=== PATIENT | male | born 1985 | race Caucasian/White ===

== ENCOUNTER 2020-08-11 19:28 | Emergency (ER) | payer OTHER, SELFPAY ==
[2020-08-11 19:30] VITALS: BP 147/91; PULSE 90; RESP 20; TEMP 36.5; O2SAT 97; BMI 29.8
--- NOTE | 2020-08-11 19:51 | HMH.EDUTC ---
[facility] [place] Disposition Clinical Impression: Bronchitis, Viral syndrome Disposition: Home, Self-Care Condition on Discharge: Good Instructions: DI for Acute Bronchitis, Preventing the Spread of Coronavirus Discharge Instructions Additional Instructions: Drink plenty of fluids. Take tylenol for pain or fever. Return if you begin to have difficulty breathing. Follow up with your regular doctor. GO TO THE ER FOR ANY WORSENING SYMPTOMS Prescriptions: Ondansetron [Zofran 4mg ODT] 4 mg PO Q8HP PRN #12 tab.rapdis PRN Reason: Nausea Transmission Status: Received by [facility] #[id number] Benzonatate [Tessalon Perle 100mg Cap] 100 mg PO TIDP PRN #30 cap PRN Reason: Cough Transmission Status: Received by [facility] #[id number] Azithromycin [Z-Chano 250mg Tab*] 250 mg PO UD DOSE PK #6 tab Transmission Status: Received by [facility] #[id number] Referrals: PCP,No [Primary Care Provider] - Forms: Work/School Release Time of Disposition: 20:09 Medical Decision Making - Medical Records Medical records reviewed: No: I reviewed the patient's medical records. - Dmitri Inquiry Pt receiving controlled substance: No Vital Signs: 08/11/20 19:30 08/11/20 19:57 Temperature 97.7 F 97.7 F Temperature Source Oral Pulse Rate 90 Pulse Rate [Right Brachial] 90 Respiratory Rate 20 20 Blood Pressure 147/91 H Blood Pressure [Right Arm] 147/91 H Blood Pressure Mean [Right Arm] 109 Blood Pressure Source [Right Arm] Automatic Cuff Blood Pressure Position [Right Arm] Sitting 02 Sat by Pulse Oximetry 97 Oxygen Delivery Method Room Air [facility] [place] HPI - General Stated complaint: Sinus congestion;nausea Time Seen by Provider: 08/11/20 19:52 - History of Present Illness Provider Complaint: He states that he has had sinus congestion, body aches, cough, for the past 2 days. He denies any known exposure to covid-19. - Related Data Home Medications Medication Instructions Recorded Confirmed Omeprazole [Omeprazole 40mg 40 mg PO DAILY 02/26/19 08/11/20 Capsule] Previous Rx's Medication Instructions Recorded Azithromycin [Z-Chano 250mg Tab*] 250 mg PO UD DOSE PK #6 tab 08/11/20 Benzonatate [Tessalon Perle 100mg 100 mg PO TIDP PRN #30 cap 08/11/20 Cap] Ondansetron [Zofran 4mg ODT] 4 mg PO Q8HP PRN #12 tab.rapdis 08/11/20 Allergies Allergy/AdvReac Type Severity Reaction Status Date / Time amoxicillin Allergy Verified 07/12/19 21:34 cephalexin Allergy Verified 02/26/19 07:20 Penicillins Allergy Verified 02/26/19 07:20 sulfamethoxazole Allergy Verified 02/26/19 07:20 [From Bactrim] trimethoprim [From Bactrim] Allergy Verified 02/26/19 07:20 [facility] History - Hepatitis A Screen Attestation statement:: This patient has been screened for Hepatitis A risk factors. I have reviewed the patient's past medical history: Yes Medical History: Denies:: Cancer, Diabetes Mellitus Type 1, Diabetes Mellitus Type 2, MRSA Amputation: No Fractures: No - Social History Smoking Status: Never smoker Alcohol Intake: never Occupational Status: employed ROS Obtained: Yes All systems reviewed & no additional complaints - Constitutional Constitutional: Reports system reviewed and no additional complaints, except as docu - Eyes Eyes: Reports system reviewed and no additional complaints, except as docu - ENT Ears, Nose, Mouth, and Throat: Reports system reviewed and no additional complaints, except as docu - Cardiovascular Cardiovascular: Reports system reviewed and no additional complaints, except as docu - Respiratory Respiratory: Reports system reviewed and no additional complaints, except as docu - Gastrointestinal Gastrointestingal: Reports: system reviewed and no additional complaints, except as docu Physical Exam - General General appearance: alert, in no apparent distress - Head Head exam: atraumatic, normocephalic, normal inspection - Eye
[2020-08-11 19:57] VITALS: BP 147/91; PULSE 90; RESP 20; TEMP 36.5; O2SAT 97
--- NOTE | 2020-08-12 09:49 | PC.NURSE ---
patient notified of positive covid results
== END 2020-08-11 20:13 | disposition home or self-care (01) ==
PROVIDERS: Emergency Provider Nurse Practitioner Family
DX: U07.1 COVID-19 (principal); J20.9 Acute bronchitis, unspecified; Z88.0 Allergy status to penicillin; Z88.2 Allergy status to sulfonamides
CPT/HCPCS: 99202; G0463; U0003

== ENCOUNTER 2020-08-24 12:50 | Emergency (ER) | payer OTHER, SELFPAY ==
[2020-08-24 12:51] VITALS: BP 121/93; PULSE 114; RESP 20; TEMP 37; O2SAT 98; BMI 28.5
--- NOTE | 2020-08-24 13:03 | XR_ITS ---
PROCEDURE: XR CHEST PORTABLE CLINICAL HISTORY: soa Shortness of air COMPARISON: CR Chest from 02/26/2019 FINDINGS: The cardiomediastinal silhouette and pulmonary vascularity are within normal limits. The lungs are clear without infiltrates, suspicious nodules, or pleural effusions. No acute bony abnormalities. IMPRESSION: No acute findings. Dictated by: Pawan Lopez MD 08/24/2020 15:01 Pawan Lopez MD in [place] 08/24/2020 15:01
--- NOTE | 2020-08-24 13:05 | HMH.EDSOB ---
ED Disposition Clinical Impression: COVID-19 Chest pain Qualifiers: Chest pain type: unspecified Qualified Code(s): R07.9 - Chest pain, unspecified Dyspnea Qualifiers: Dyspnea type: shortness of breath Qualified Code(s): R06.02 - Shortness of breath Disposition: Home, Self-Care Condition on Discharge: Good Instructions: DI for Atypical Chest Pain, DI for Shortness of Breath Referrals: Neelima Reinoso [Primary Care Provider] - 3 days - Critical Care Critical Care Time: No Attestation: On 08/24/20, the high probability of a clinically significant, sudden or life threatening deterioration of the following system(s) required my full and direct attention, intervention and personal management. The time I documented below is in addition to time spent performing reported procedures but includes the following listed in this critical care notation. Medical Decision Making - Medical Records Medical records reviewed: Yes: I reviewed the patient's medical records. - Dmitri Inquiry Pt receiving controlled substance: No Vital Signs: 08/24/20 12:51 08/24/20 13:47 08/24/20 14:56 Temperature 98.6 F Temperature Source Oral Pulse Rate [Left Radial] 114 H 93 H 90 Respiratory Rate 20 Blood Pressure [Right Arm] 121/93 H 113/75 121/80 Blood Pressure Mean [Right Arm] 102 87 93 Blood Pressure Source [Right Arm] Automatic Cuff Automatic Cuff Automatic Cuff Blood Pressure Position [Right Arm] Sitting Sitting Sitting 02 Sat by Pulse Oximetry 98 96 98 Oxygen Delivery Method Room Air Room Air Room Air - Lab Data Lab results reviewed: Yes: I reviewed the patient's lab results. Lab Results 08/24/20 13:26: WBC 7.0, RBC 5.54, Hgb 16.9, Hct 48.8, MCV 88.1, MCH 30.4, MCHC 34.5, RDW 13.4, Plt Count 301, MPV 8.3, Neut % (Auto) 63.1, Lymph % (Auto) 26.0, [place] % (Auto) 8.4, Eos % (Auto) 1.9, Baso % (Auto) 0.6, Neut # (Auto) 4.4, Lymph # (Auto) 1.8, [place] # (Auto) 0.6, Eos # (Auto) 0.1, Baso # (Auto) 0.0 08/24/20 13:26: Sodium 141, Potassium 3.9, Chloride 101, Carbon Dioxide 28, Anion Gap 15.9 H, BUN 11, Creatinine 0.90, Estimated Creat Clear 157, Estimated GFR 97, Est GFR ( Amer) 118, Glucose 116 H, Calcium 9.5, Total Bilirubin 0.5, AST 36, ALT 49, Alkaline Phosphatase 64, Troponin I < 0.01, Total Protein 8.0, Albumin 4.9, Globulin 3.1, Albumin/Globulin Ratio 1.6 08/24/20 13:26: D-Dimer 0.72 H Result diagrams: 08/24/20 13:26 08/24/20 13:26 Orders (Tests/Meds): ED MEDICATIONS Discontinued Medications Generic Name Dose Route Start Last Admin Trade Name Freq PRN Reason Stop Dose Admin Sodium Chloride 1,000 mls @ 999 mls/hr 08/24/20 13:15 08/24/20 13:35 Sod Chlor 0.9% 1000ml Bag IV 08/24/20 14:15 999 mls/hr .Q1H1M BELLA Administration Iopamidol 75 ml 08/24/20 14:52 08/24/20 14:53 Iopamidol-370 (76%);100ml Bottle IV 08/24/20 14:53 75 ml ONCE ONE Administration Sodium Chloride 50 ml 08/24/20 14:52 08/24/20 14:52 0.9 % Sodium Chloride 50 Ml Vial IV 08/24/20 14:53 50 ml ONCE ONE Administration Sodium Chloride 10 ml 08/24/20 14:52 08/24/20 14:53 Sodium Chloride 0.9% 10ml Syr (Rad Only) IV 08/24/20 14:53 10 ml ONCE ONE Administration ORDERS Category Date Time Status Troponin I Q3H Lab 08/24/20 16:15 Ordered Troponin I Q3H Lab 08/24/20 19:15 Ordered EKG Request [ECG Request by /Leander] Stat Y 08/24/20 13:14 Ordered - Radiology Data #1 Image(s): Chest Image Reviewed: Yes I reviewed the patient's radiology results Preliminary Findings: Normal/NAD - CT Data CT Scan: Chest Time Received: 15:[address] Reviewed: Yes: I have reviewed the patient's CT results Preliminary Findings: Normal/NAD - ECG Data Tracing #1 EKG at 1346 shows a sinus rhythm with a rate of 91. No acute ST segment elevation or depression. No hyperacute T waves. Normal intervals. EKG interpreted by me. Medical Decision Narrative: Patient tachycardic here and symptomology co
[2020-08-24 13:42] LABS: Basophils % 0.6 % (0.1-2.0); Eosinophils # 0.1 K/mm3 (0.0-0.4); Eosinophils % 1.9 % (0.1-12.0); Hematocrit 48.8 % (42.0-52.0); Hemoglobin 16.9 g/dL (14.1-18.0); Lymphocytes # 1.8 K/mm3 (0.7-4.5); Mean Corpuscular HGB Conc 34.5 g/dL (31.8-35.4); Mean Corpuscular Hemoglobin 30.4 pg (27.0-31.2); Mean Corpuscular Volume 88.1 fl (80-94); Mean Platelet Volume 8.3 fl (7.4-10.4); Monocytes # 0.6 K/mm3 (0.1-1.0); Monocytes % 8.4 % (1.7-9.3); Neutrophils # 4.4 K/mm3 (1.8-7.8); Neutrophils % 63.1 % (37.0-80.0); Platelet Count 301 K/mm3 (142-424); Red Blood Count 5.54 M/mm3 (4.60-6.20); Red Cell Distribution Width 13.4 % (11.5-17.5)
[2020-08-24 13:47] VITALS: BP 113/75; PULSE 93; O2SAT 96
[2020-08-24 13:54] LABS: Alanine Aminotransferase 49 U/L (12-78); Albumin Level 4.9 g/dl (3.5-5.0); Albumin/Globulin Ratio 1.6 (1.1-1.8); Alkaline Phosphatase 64 U/L (38-126); Anion Gap 15.9 mEq/L (5-15); Aspartate Amino Transferase 36 U/L (17-59); Bilirubin,Total 0.5 mg/dl (0.2-1.3); Blood Urea Nitrogen 11 mg/dl (9-20); Calcium 9.5 mg/dl (8.4-10.2); Carbon Dioxide 28 mmol/L (22.0-30.0); Chloride 101 mmol/L (98-107); Creatinine Clearance Estimated 157 mL/min (50-200); Estimated Glomerular Filt Rate 97 ml/min (>60); GFR (African American) 118 ML/MIN (>60); Globulin 3.1 g/dL (1.3-3.2); Glucose 116 mg/dl (74-100); Potassium 3.9 mmoL/L (3.5-5.1); Sodium 141 mmol/L (136-145)
[2020-08-24 13:59] LABS: D-Dimer 0.72 ug/mL (0.0-0.5)
--- NOTE | 2020-08-24 14:08 | CT_ITS ---
PROCEDURE: CT ANGIO CHEST CLINCIAL INDICATION: PE Shortness of air, Covid19 positive COMPARISON: CT ABDPELW CT abdomen pelvis w con from 02/26/2019 TECHNIQUE: IV Contrast: 70ML Isovue 370 Axial images obtained with sagittal and coronal reformats. All CT scans at the facility use one or more dose reduction, viz: automated exposure control, ma/kV adjustment per patient size (including targeted exams where dose is matched to indication, i.e. head), or iterative reconstruction technique. FINDINGS: HEART AND MEDIASTINAL STRUCTURES: No evidence of pulmonary embolus, aortic aneurysm, or aortic dissection. There are few small nodes in the mediastinum and axilla LUNGS AND PLEURAL SPACES: Unremarkable. BONY STRUCTURES: No acute bony abnormalities apparent. UPPER ABDOMEN: Unremarkable. ADDITIONAL FINDINGS: No other significant abnormalities. IMPRESSION: No acute finding. No evidence of pulmonary embolus. Lungs are clear. Dictated by: Pawan Lopez MD 08/24/2020 15:19 Pawan Lopez MD in [place] 08/24/2020 15:19
[2020-08-24 14:15] LABS: Troponin I < 0.01 ng/ml (0.00-0.034)
[2020-08-24 14:56] VITALS: BP 121/80; PULSE 90; O2SAT 98
[2020-08-24 15:39] VITALS: BP 134/86; PULSE 87; RESP 16; TEMP 37; O2SAT 97
== END 2020-08-24 15:43 | disposition home or self-care (01) ==
PROVIDERS: Emergency Provider Emergency Medicine; PCP Family Medicine
DX: R07.9 Chest pain, unspecified (principal); R06.02 Shortness of breath; Z86.16 Personal history of COVID-19
CPT/HCPCS: 71045; 71275; 80053; 84484; 85025; 85378; 96365; 99283; Q9967

== ENCOUNTER 2021-01-23 09:48 | Emergency (ER) | payer BC, OTHER, SELFPAY ==
[2021-01-23 09:50] VITALS: BP 107/70; PULSE 77; RESP 18; TEMP 36.9; O2SAT 98; BMI 29.8
--- NOTE | 2021-01-23 10:06 | XR_ITS ---
PROCEDURE: XR KNEE RT 3V CLINICAL INDICATION: knee pain COMPARISON: No exams were available for comparison FINDINGS: No fracture or dislocation. No lytic or blastic change. There is normal mineralization. The joint spaces are well-preserved. No significant degenerative/arthritic changes. No erosive changes evident. Other findings:There is a small suprapatellar effusion suspected. Small bone island noted in the proximal tibia. IMPRESSION: Small knee joint effusion otherwise negative Dictated by: Pawan Lopez MD 01/23/2021 12:32 Pawan Lopez MD in [place] 01/23/2021 12:32
--- NOTE | 2021-01-23 10:22 | HMH.EDUTC ---
[facility] [place] Disposition Clinical Impression: Knee pain Qualifiers: Chronicity: unspecified Laterality: right Qualified Code(s): M25.561 - Pain in right knee Disposition: Home, Self-Care Condition on Discharge: Good Instructions: How To Perform RICE (Rest, Ice, Compress, Elevate), How to Apply an Antonio Wrap, DI for Knee Pain Additional Instructions: *weight bearing as tolerated *RICE, Rest the extremity, Ice 15-20 minutes 3-4 times daily, Compress- wear the antonio wrap as discussed as much as possible to help reduce swelling and pain, Elevate the extremity when at rest *Anotnio wrap is for support and help control swelling, use it except in the shower. Be sure that is not to tight but not to loose either *Elevate when resting *Ibuprofen 800mg every 6-8 hours as needed for pain an inflammation. If need something more can take Tylenol in between doses of Ibuprofen to help Immediately follow up with your family doctor for new or worsening of symptoms, or no noticeable improvement over the next 3-5 days Call back to the [facility] later today for the official reading of your Knee xray Return if needed Follow up with Orthopedics if needed Follow up with your Family Doctor if needed Prescriptions: Ibuprofen [Ibuprofen 800mg Tablet] 800 mg PO Q8HP PRN #20 tab PRN Reason: Moderate Pain Transmission Status: Received by [employer] #[id number] Referrals: Provider,MD Niharika [Referring] - As needed Ori Moe MD [Staff Physician] - Forms: Work/School Release Medical Decision Making - Dmitri Inquiry Pt receiving controlled substance: No Dmitri was queried for this patient: No Vital Signs: 01/23/21 09:50 01/23/21 10:49 Temperature 98.4 F 98.4 F Temperature Source Oral Pulse Rate 77 Pulse Rate [Right Brachial] 77 Respiratory Rate 18 18 Blood Pressure 107/70 L Blood Pressure [Right Arm] 107/70 L Blood Pressure Mean [Right Arm] 82 Blood Pressure Source [Right Arm] Automatic Cuff Blood Pressure Position [Right Arm] Sitting 02 Sat by Pulse Oximetry 98 Oxygen Delivery Method Room Air - Radiology Data #1 Image(s): Knee Image Reviewed: Yes I reviewed the patient's radiology image Preliminary Findings: No Fracture Seen Medical Decision Narrative: Recommended crutches and patient declined spoke with patient about knee immobilizer and patient declined antonio wrap placed [facility] [place] HPI - General Stated complaint: injured left knee Time Seen by Provider: 01/23/21 10:22 Mode of Arrival: Ambulatory Source of Information: Patient Limitations: No Limitations Description of Symptoms (Recalled from Triage Doc. by RN): PATIENT C/O RIGHT KNEE PAIN SINCE THIS MORNING. 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 States that he is unsure of injury but when he woke up this morning he was having pain in his right knee State that it felt sore to the touch and hurt when he would bend it - Related Data Home Medications Medication Instructions Recorded Confirmed Metoprolol Succinate [Metoprolol 100 mg PO DAILY 01/23/21 01/23/21 Succinate 100mg Tablet*] Omeprazole [Omeprazole 40mg 40 mg PO DAILY 01/23/21 01/23/21 Capsule] Previous Rx's Medication Instructions Recorded Ibuprofen [Ibuprofen 800mg 800 mg PO Q8HP PRN #20 tab 01/23/21 Tablet] Allergies Allergy/AdvReac Type Severity Reaction Status Date / Time amoxicillin Allergy Verified 07/12/19 21:34 cephalexin Allergy Verified 02/26/19 07:20 Penicillins Allergy Verified 02/26/19 07:20 sulfamethoxazole Allergy Verified 02/26/19 07:20 [From Bactrim] trimethoprim [From Bactrim] Allergy Verified 02/26/19 07:20
[2021-01-23 10:49] VITALS: BP 107/70; PULSE 77; RESP 18; TEMP 36.9; O2SAT 98
== END 2021-01-23 11:11 | disposition home or self-care (01) ==
PROVIDERS: Emergency Provider Nurse Practitioner; PCP Nurse Practitioner Family
DX: M25.561 Pain in right knee (principal)
CPT/HCPCS: 73562; 99202; G0463

== ENCOUNTER 2021-02-13 19:37 | Emergency (ER) | payer BC, OTHER, SELFPAY ==
[2021-02-13 19:43] VITALS: BMI 28.5
--- NOTE | 2021-02-13 19:44 | XR_ITS ---
PROCEDURE INFORMATION: Exam: XR Left Ankle Exam date and time: 02/13/2021 7:44 PM Age: 35 years old Clinical indication: Left; Patient HX: Rolled ankle today and now having lateral pain TECHNIQUE: Imaging protocol: XR Left ankle. Views: 3 or more views. COMPARISON: No relevant prior studies available. FINDINGS: Bones/joints: Normal. Soft tissues: Lateral soft tissue swelling. IMPRESSION: Lateral soft tissue swelling. MRI would have greater sensitivity for soft tissue including ligamentous evaluation.
[2021-02-13 20:16] VITALS: BP 123/73; PULSE 91; RESP 18; TEMP 36.6; O2SAT 97; BMI 28.5
--- NOTE | 2021-02-13 20:35 | HMH.EDUTC ---
[facility] [place] [place] Disposition Clinical Impression: Left ankle sprain Qualifiers: Encounter type: initial encounter Involved ligament of ankle: unspecified ligament Qualified Code(s): S93.402A - Sprain of unspecified ligament of left ankle, initial encounter Disposition: Home, Self-Care Condition on Discharge: Good Instructions: Ankle Sprain, DI for Ankle Sprain Additional Instructions: Rest the extremity, apply ice for 15 minutes as tolerated three or four times per day, Elevate the extremity as tolerated while you are resting. Take ibuprofen for pain. I sent in a prescription to your pharmacy. Follow up with Dr. Morin (podiatry). Sometimes there can be fractures or ligament injuries that don't show up well on the x-rays. So, you should follow up if you continue to have symptoms. I put in a referral but you need to call her office and schedule an appointment. Follow up with your regular doctor. GO TO THE ER FOR ANY WORSENING SYMPTOMS Prescriptions: Ibuprofen [Ibuprofen 800mg Tablet] 800 mg PO Q8HP PRN #30 tab PRN Reason: Moderate Pain Transmission Status: Received by [employer] #[id number] Referrals: Marilee Seay [Primary Care Provider] - Kathryn Morin DPM [Staff Physician] - Forms: Work/School Release Time of Disposition: 20:41 Medical Decision Making - Medical Records Medical records reviewed: No: I reviewed the patient's medical records. - Dmitri Inquiry Pt receiving controlled substance: No Vital Signs: 02/13/21 20:16 02/13/21 21:24 Temperature 97.8 F 98 F Temperature Source Temporal Artery Scan Pulse Rate 84 Pulse Rate [Left] 91 H Respiratory Rate 18 16 Blood Pressure 126/74 Blood Pressure [Right Arm] 123/73 Blood Pressure Mean [Right Arm] 89 Blood Pressure Source [Right Arm] Automatic Cuff Blood Pressure Position [Right Arm] Sitting 02 Sat by Pulse Oximetry 97 - Radiology Data #1 Image(s): Ankle Image Reviewed: Yes I reviewed the patient's radiology image, Yes I have reviewed radiologist's interpretation PROCEDURE INFORMATION: Exam: XR Left Ankle Exam date and time: 02/13/2021 7:44 PM Age: 35 years old Clinical indication: Left; Patient HX: Rolled ankle today and now having lateral pain TECHNIQUE: Imaging protocol: XR Left ankle. Views: 3 or more views. COMPARISON: No relevant prior studies available. FINDINGS: Bones/joints: Normal. Soft tissues: Lateral soft tissue swelling. IMPRESSION: Lateral soft tissue swelling. MRI would have greater sensitivity for soft tissue including ligamentous evaluation. [facility] [place] [place] HPI - General Stated complaint: wc injured L ankle 02/13 730 Time Seen by Provider: 02/13/21 20:36 Mode of Arrival: Ambulatory Source of Information: Patient Limitations: No Limitations Description of Symptoms (Recalled from Triage Doc. by RN): pt rolled his L ankle while walking earlier today. pain is 10/10 and sharp in nature. HEENT Symptoms (Recalled from RN notes): No Resp Symptoms (Recalled from RN notes): No Skin Symptoms (Recalled from RN notes): No MS Symptoms (Recalled from RN notes): Yes (L ankle pain) Functional Status (Recalled from RN notes): na - History of Present Illness Provider Complaint: He stepped down off of a loading dock today and twisted his left ankle. Since then he has had left ankle pain and swelling. It is worse when he bears weight on it. - Related Data Home Medications Medication Instructions Recorded Confirmed Metoprolol Succinate [Metoprolol 100 mg PO DAILY 01/23/21 01/23/21 Succinate 100mg Tablet*] Omeprazole [Omeprazole 40mg 40 mg PO DAILY 01/23/21 01/23/21 Capsule] Previous Rx's Medication Instructions Recorded Ibuprofen [Ibuprofen 800mg 800 mg PO Q8HP PRN #20 tab 01/23/21 Tablet] Ibuprofen [Ibuprofen 800mg 800 mg PO Q8HP PRN #30 tab 02/13/21 Tablet] Allergies Allergy/Adv
[2021-02-13 21:24] VITALS: BP 126/74; PULSE 84; RESP 16; TEMP 36.6
== END 2021-02-13 21:23 | disposition home or self-care (01) ==
PROVIDERS: Emergency Provider Nurse Practitioner Family; PCP Nurse Practitioner Family
DX: S93.402A Sprain of unspecified ligament of left ankle, initial encounter (principal); X50.1XXA Overexertion from prolonged static or awkward postures, initial encounter; Y92.62 Dock or shipyard as the place of occurrence of the external cause; Y99.0 Civilian activity done for income or pay
CPT/HCPCS: 73610; 99202; G0463

== ENCOUNTER → 2021-02-26 09:02 | Outpatient (POV) | payer BC, SELFPAY | PROVIDERS: Visit Provider Otolaryngology | DX: Z00.00 Encounter for general adult medical examination without abnormal findings (principal) ==

== ENCOUNTER 2021-06-16 17:15 | Emergency (ER) | payer BC, SELFPAY ==
[2021-06-16 17:23] VITALS: BP 147/99; PULSE 85; RESP 18; TEMP 36.9; O2SAT 98; BMI 29.1
[2021-06-16 18:31] LABS: Basophils # 0.1 K/mm3 (0-0.2); Basophils % 1.1 % (0.1-2.0); Eosinophils # 0.3 K/mm3 (0.0-0.4); Eosinophils % 4.2 % (0.1-12.0); Hematocrit 42.5 % (42.0-52.0); Hemoglobin 14.7 g/dL (14.1-18.0); Lymphocytes # 1.5 K/mm3 (0.7-4.5); Lymphocytes % 25.8 % (10-50); Mean Corpuscular HGB Conc 34.6 g/dL (31.8-35.4); Mean Corpuscular Hemoglobin 31.2 pg (27.0-31.2); Mean Corpuscular Volume 90.1 fl (80-94); Mean Platelet Volume 8.3 fl (7.4-10.4); Monocytes # 0.4 K/mm3 (0.1-1.0); Monocytes % 6.6 % (1.7-9.3); Neutrophils # 3.7 K/mm3 (1.8-7.8); Neutrophils % 62.3 % (37.0-80.0); Platelet Count 291 K/mm3 (142-424); Red Blood Count 4.72 M/mm3 (4.60-6.20); Red Cell Distribution Width 13.5 % (11.5-17.5)
[2021-06-16 18:33] LABS: Alanine Aminotransferase 33 U/L (12-78); Albumin Level 4.3 g/dl (3.5-5.0); Albumin/Globulin Ratio 1.7 (1.1-1.8); Alkaline Phosphatase 58 U/L (38-126); Anion Gap 9.1 mEq/L (5-15); Aspartate Amino Transferase 37 U/L (17-59); Bilirubin,Total 0.3 mg/dl (0.2-1.3); Blood Urea Nitrogen 16 mg/dl (9-20); Calcium 8.7 mg/dl (8.4-10.2); Carbon Dioxide 28 mmol/L (22.0-30.0); Chloride 105 mmol/L (98-107); Creatine Kinase 292 U/L (55-170); Creatinine Clearance Estimated 179 mL/min (50-200); Estimated Glomerular Filt Rate 111 ml/min (>60); GFR (African American) 134 ML/MIN (>60); Globulin 2.6 g/dL (1.3-3.2); Glucose 98 mg/dl (74-100); Potassium 4.1 mmoL/L (3.5-5.1); Sodium 138 mmol/L (136-145); Total Protein,Serum 6.9 g/dl (6.3-8.2)
[2021-06-16 18:38] LABS: C-Reactive Protein 1.2 mg/L (0-4)
[2021-06-16 18:53] LABS: Erythrocyte Sedimentation Rate 6 mm/hr (0-15)
--- NOTE | 2021-06-16 19:23 | HMH.EDGENADL ---
ED Disposition Clinical Impression: Atypical chest pain, Rash Disposition: Home, Self-Care Condition on Discharge: Good Instructions: DI for Atypical Chest Pain Additional Instructions: Continue current medications. Call your primary care doctor tomorrow to arrange follow-up. Additional instructions for CHEST PAIN: See your physician as soon as possible for further evaluation. Return immediately if worsening chest pain, vomiting, shortness of breath, fever, coughing of blood. Referrals: Marilee Seay [Primary Care Provider] - - Critical Care Critical Care Time: No Attestation: On 06/16/21, the high probability of a clinically significant, sudden or life threatening deterioration of the following system(s) required my full and direct attention, intervention and personal management. The time I documented below is in addition to time spent performing reported procedures but includes the following listed in this critical care notation. Medical Decision Making - Dmitri Inquiry Pt receiving controlled substance: No Vital Signs: 06/16/21 17:23 Temperature 98.4 F Temperature Source Oral Pulse Rate [Left Radial] 85 Respiratory Rate 18 Blood Pressure [Right Arm] 147/99 H Blood Pressure Mean [Right Arm] 115 Blood Pressure Source [Right Arm] Automatic Cuff Blood Pressure Position [Right Arm] Sitting 02 Sat by Pulse Oximetry 98 Oxygen Delivery Method Room Air - Lab Data Lab Results 06/16/21 18:16: WBC 6.0, RBC 4.72, Hgb 14.7, Hct 42.5, MCV 90.1, MCH 31.2, MCHC 34.6, RDW 13.5, Plt Count 291, MPV 8.3, Neut % (Auto) 62.3, Lymph % (Auto) 25.8, [place] % (Auto) 6.6, Eos % (Auto) 4.2, Baso % (Auto) 1.1, Neut # (Auto) 3.7, Lymph # (Auto) 1.5, [place] # (Auto) 0.4, Eos # (Auto) 0.3, Baso # (Auto) 0.1, ESR 6 06/16/21 18:16: Sodium 138, Potassium 4.1, Chloride 105, Carbon Dioxide 28, Anion Gap 9.1, BUN 16, Creatinine 0.80, Estimated Creat Clear 179, Estimated GFR 111, Est GFR ( Amer) 134, Glucose 98, Calcium 8.7, Total Bilirubin 0.3, AST 37, ALT 33, Alkaline Phosphatase 58, Total Creatine Kinase 292 H, C-Reactive Protein 1.2, Total Protein 6.9, Albumin 4.3, Globulin 2.6, Albumin/Globulin Ratio 1.7 06/16/21 18:16: Troponin I < 0.01 06/16/21 19:40: Troponin I < 0.01 Result diagrams: 06/16/21 18:16 06/16/21 18:16 Orders (Tests/Meds): ED MEDICATIONS Discontinued Medications Generic Name Dose Route Start Last Admin Trade Name Nicolas PRN Reason Stop Dose Admin Sodium Chloride 1,000 ml 06/16/21 20:26 Sodium Chloride 0.9% 1000ml Bag IV 06/16/21 20:27 BOLUS ONE ORDERS Category Date Time Status Chest XR 2 view (NOT portable) [XR chest 2V] Stat Exams 06/16/21 19:33 Taken Troponin I Q3H Lab 06/17/21 01:45 Ordered - ECG Data Tracing #1 EKG interpreted by Gerry Anton MD: Rhythm: sinus Rate: 75 [place]: normal Ectopy: none Conduction: Incomplete right bundle branch block ST Segment Changes: none T Wave Changes: none Q Waves: none No evidence of acute ischemia or injury General Adult HPI - General Chief complaint: PAIN Stated complaint: Joint pain Time Seen by Provider: 06/16/21 19:23 Mode of Arrival: Ambulatory Limitations: No Limitations Description of Symptoms (Recalled from ER Triage Doc. by RN): pt to ed per pvt car. pt states he was recently put on clindamycin for mrsa. pt is c/o joint stiffness that started x2 days ago. pt denies sob, cp, abd pain, rash, or n/v. - History of Present Illness HPI narrative: Nurse reports states that the patient is here for joint pains. However the patient complains to me that he has pain in the left side of his chest under his breast for 2 days. Also does have some low back pain and pain in the top of his right shoulder. Some itching of his forehead and neck. He is concerned because he has had a pruritic rash on his legs for the past month. He went to an urgent treatment center in [place] and was told that he had turk
--- NOTE | 2021-06-16 19:32 | ECG_ITS ---
APPROVED REPORT Exam: Resting ECG HR:75 bpm ECG Measurements Heart Rate 75 AXES VA 146 P 56 QRSd 96 QRS 23 QT 386 T 25 QTc 431 Conclusion Normal sinus rhythm Incomplete right bundle branch block Borderline ECG Electronically signed by : Harsh Monzon MD 06/18/2021 12:18:59
--- NOTE | 2021-06-16 19:33 | XR_ITS ---
PROCEDURE INFORMATION: Exam: XR Chest Exam date and time: 06/16/2021 7:33 PM Age: 35 years old Clinical indication: Sternal or substernal pain; Additional info: Chest pain TECHNIQUE: Imaging protocol: XR of the chest. Views: 2 views. COMPARISON: CR XR CHEST PORTABLE 08/24/2020 1:26 PM FINDINGS: Lungs: Normal. Pleural spaces: Unremarkable. No pleural effusion. No pneumothorax. Heart/Mediastinum: Normal. Bones/joints: No acute abnormality. IMPRESSION: No acute findings.
[2021-06-16 20:03] LABS: Troponin I < 0.01 ng/ml (0.00-0.034)
[2021-06-16 20:16] LABS: Troponin I < 0.01 ng/ml (0.00-0.034)
[2021-06-16 21:07] VITALS: BP 119/75; PULSE 78; RESP 16; TEMP 36.8
== END 2021-06-16 21:15 | disposition home or self-care (01) ==
PROVIDERS: Emergency Provider Emergency Medicine; PCP Nurse Practitioner Family
DX: M25.511 Pain in right shoulder (principal); R07.89 Other chest pain; Z88.0 Allergy status to penicillin; Z88.2 Allergy status to sulfonamides
CPT/HCPCS: 71046; 80053; 82550; 84484; 85025; 85651; 86140; 93005; 96365; 96366; 99283

== ENCOUNTER 2021-10-02 17:50 | Emergency (ER) | payer SELFPAY ==
--- NOTE | 2021-10-02 17:49 | ECG_ITS ---
APPROVED REPORT Exam: Resting ECG HR:118 bpm ECG Measurements Heart Rate 118 AXES [place] 124 P 59 QRSd 110 QRS 93 QT 302 T 21 QTc 372 Conclusion SINUS TACHYCARDIA BORDERLINE RIGHT AXIS DEVIATION [QRS AXIS > 90] INCOMPLETE RIGHT BUNDLE BRANCH BLOCK [90+ ms QRS DURATION, TERMINAL R IN V1/V2, 40+ ms S IN I/aVL/V4/V5/V6] ABNORMAL RHYTHM ECG UNCONFIRMED REPORT Electronically signed by : Harsh Monzon MD 10/04/2021 15:06:24
[2021-10-02 17:50] VITALS: BP 131/89; PULSE 123; RESP 12; TEMP 38.3; O2SAT 98; BMI 32.5
[2021-10-02 17:52] VITALS: BMI 32.5
--- NOTE | 2021-10-02 17:52 | XR_ITS ---
PROCEDURE INFORMATION: Exam: XR Chest Exam date and time: 10/02/2021 5:52 PM Age: 35 years old Clinical indication: Fever; Additional info: Fever , chest pain TECHNIQUE: Imaging protocol: XR of the chest. Views: 1 view. COMPARISON: CR XR CHEST 2V 06/16/2021 7:33 PM FINDINGS: Lungs: No region of consolidation Pleural spaces: No region of pleural effusion. Heart/Mediastinum: Heart normal size. Bones/joints: Unremarkable. IMPRESSION: No evidence of acute cardiopulmonary disease.
[2021-10-02 18:01] LABS: Coronavirus 19, PCR Not Detected (NotDetected); Influenza A, PCR Not Detected (NotDetected); Influenza B, PCR Not Detected (NotDetected)
--- NOTE | 2021-10-02 18:06 | PC.NURSE ---
Radiology at bedside
[2021-10-02 18:09] LABS: Basophils # 0.1 K/mm3 (0-0.2); Basophils % 0.5 % (0.1-2.0); Eosinophils # 0.1 K/mm3 (0.0-0.4); Hematocrit 43.1 % (42.0-52.0); Hemoglobin 14.1 g/dL (14.1-18.0); Lymphocytes # 1.1 K/mm3 (0.7-4.5); Lymphocytes % 9.5 % (10-50); Mean Corpuscular HGB Conc 32.6 g/dL (31.8-35.4); Mean Corpuscular Hemoglobin 30.3 pg (27.0-31.2); Mean Corpuscular Volume 92.9 fl (80-94); Mean Platelet Volume 8.4 fl (7.4-10.4); Monocytes # 0.5 K/mm3 (0.1-1.0); Monocytes % 4.4 % (1.7-9.3); Neutrophils # 9.9 K/mm3 (1.8-7.8); Neutrophils % 84.6 % (37.0-80.0); Platelet Count 250 K/mm3 (142-424); Red Blood Count 4.64 M/mm3 (4.60-6.20); Red Cell Distribution Width 13.5 % (11.5-17.5); White Blood Count 11.7 K/mm3 (4.8-10.8)
--- NOTE | 2021-10-02 18:13 | PC.NURSE ---
ED MD at bedside
[2021-10-02 18:16] LABS: Anion Gap 13.7 mEq/L (5-15); Blood Urea Nitrogen 13 mg/dl (9-20); Calcium 8.9 mg/dl (8.4-10.2); Carbon Dioxide 26 mmol/L (22.0-30.0); Chloride 99 mmol/L (98-107); Creatinine Clearance Estimated 178 mL/min (50-200); Estimated Glomerular Filt Rate 97 ml/min (>60); GFR (African American) 117 ML/MIN (>60); Glucose 122 mg/dl (74-100); Potassium 3.7 mmoL/L (3.5-5.1); Sodium 135 mmol/L (136-145)
[2021-10-02 18:22] LABS: Strep Scrn Group A (Rapid) Positive (Negative)
[2021-10-02 18:34] LABS: Troponin I < 0.01 ng/ml (0.00-0.034)
--- NOTE | 2021-10-02 18:50 | [facility].EDGENADL ---
ED Disposition Clinical Impression: Dehydration, Strep throat Disposition: Home, Self-Care Condition on Discharge: Good Prescriptions: Azithromycin [Azithromycin 500mg Tab] 500 mg PO DAILY #5 tab Transmission Status: Received by [facility] #[id number] Referrals: Marilee Seay [Primary Care Provider] - - Critical Care Critical Care Time: No Attestation: On 10/02/21, the high probability of a clinically significant, sudden or life threatening deterioration of the following system(s) required my full and direct attention, intervention and personal management. The time I documented below is in addition to time spent performing reported procedures but includes the following listed in this critical care notation. Medical Decision Making - Medical Records Medical records reviewed: Yes: I reviewed the patient's medical records. - Dmitri Inquiry Pt receiving controlled substance: No Vital Signs: 10/02/21 17:50 Temperature 101.0 F H Temperature Source Oral Pulse Rate [Left Radial] 123 H Respiratory Rate 12 Blood Pressure [Right Arm] 131/89 Blood Pressure Mean [Right Arm] 103 Blood Pressure Source [Right Arm] Automatic Cuff Blood Pressure Position [Right Arm] Sitting 02 Sat by Pulse Oximetry 98 Oxygen Delivery Method Room Air - Lab Data Lab Results 10/02/21 17:57: Group A Strep Rapid Positive A 10/02/21 17:57: SARS-CoV-2 (PCR) Not detected, Influenza A Untype (PCR) Not detected, Influenza Type B (PCR) Not detected 10/02/21 17:59: Sodium 135 L, Potassium 3.7, Chloride 99, Carbon Dioxide 26, Anion Gap 13.7, BUN 13, Creatinine 0.90, Estimated Creat Clear 178, Estimated GFR 97, Est GFR ( Amer) 117, Glucose 122 H, Calcium 8.9, Troponin I < 0.01 10/02/21 17:59: WBC 11.7 H, RBC 4.64, Hgb 14.1, Hct 43.1, MCV 92.9, MCH 30.3, MCHC 32.6, RDW 13.5, Plt Count 250, MPV 8.4, Neut % (Auto) 84.6 H, Lymph % (Auto) 9.5 L, Parmer % (Auto) 4.4, Eos % (Auto) 1.0, Baso % (Auto) 0.5, Neut # (Auto) 9.9 H, Lymph # (Auto) 1.1, Parmer # (Auto) 0.5, Eos # (Auto) 0.1, Baso # (Auto) 0.1 Result diagrams: 10/02/21 17:59 10/02/21 17:59 Orders (Tests/Meds): ED MEDICATIONS Generic Name Dose Route Start Last Admin Trade Name Freq PRN Reason Stop Dose Admin Sodium Chloride 1,000 mls @ 999 mls/hr 10/02/21 18:00 10/02/21 17:57 Sod Chlor 0.9% 1000ml Bag IV 10/02/21 19:00 999 mls/hr .Q1H1M BELLA Administration Sodium Chloride 10 ml 10/02/21 17:53 Sodium Chloride 0.9% 10ml Flush Syringe IV 11/01/21 17:52 NEEDED PRN Maintain IV Site Discontinued Medications Generic Name Dose Route Start Last Admin Trade Name Freq PRN Reason Stop Dose Admin Acetaminophen 1,000 mg 10/02/21 17:53 10/02/21 17:56 Acetaminophen 500mg Tab PO 10/02/21 17:54 1,000 mg ONCE ONE Administration Ibuprofen 600 mg 10/02/21 17:53 10/02/21 17:57 Ibuprofen 600 Mg Tablet PO 10/02/21 17:54 600 mg ONCE ONE Administration ORDERS Category Date Time Status XR chest portable Stat Exams 10/02/21 17:52 Taken Troponin I Q3H Lab 10/02/21 21:00 Ordered Troponin I Q3H Lab 10/03/21 00:00 Ordered Medical Decision Narrative: Patient is a 35-year-old male who presents to the ED today for further evaluation of sore throat, body aches and chills, fever. Patient is well-appearing on initial evaluation no acute distress, vital signs show elevated heart rate with tachycardia, fever of 101, given Tylenol and ibuprofen orally for this, patient otherwise stable with normal oxygen saturation, no dyspnea or shortness of breath, and no hypotension. Will administer 1 L of IV fluids, obtain CBC, CMP, chest x-ray, EKG, strep throat test and viral swab. Patient reassessed, remains well-appearing, found to have strep throat, given that he has a penicillin allergy, we would like to penicillin or cephalosporin if he has allergy to both, will administer azithromycin. Patient reassessed again after administration of these
[2021-10-02 19:08] VITALS: BP 123/71; PULSE 101; RESP 14; TEMP 36.8; O2SAT 98
== END 2021-10-02 19:12 | disposition home or self-care (01) ==
PROVIDERS: Emergency Provider Student in an Organized Health Care Education/Training Program; PCP Nurse Practitioner Family
DX: E86.0 Dehydration (principal); J02.0 Streptococcal pharyngitis
CPT/HCPCS: 71045; 80048; 84484; 85025; 87430; 93005; 96360; 96365; 99283; C9803; U0003; U0005